=== PATIENT | male | born 1975 | race Caucasian/White ===

== ENCOUNTER 2023-10-23 16:48 | Inpatient (IN) ==
[2023-10-23] MEDS ORDERED: ONDANSETRON 4 MG/2 ML VIAL IV PRN (17:33)
[2023-10-23] MEDS: PIPERACILLIN SODIUM/TAZOBACTAM 3.375 GM in DEXTROSE 5% IN WATER 50 ML IV SCH (17:34)
[2023-10-23] MEDS: 0.9 % SODIUM CHLORIDE 1,000 ML IV ONE (17:34)
[2023-10-23] MEDS: 0.9 % SODIUM CHLORIDE 1,000 ML IV SCH (19:47)
[2023-10-23] MEDS: HYDROmorphone 0.5 MG/0.5 ML SYRINGE IV PRN (19:48)
[2023-10-23] MEDS: 0.9 % SODIUM CHLORIDE 10 ML SYRINGE IV SCH (19:48)
[2023-10-23] MEDS: ACETAMINOPHEN 1,000 MG/100 ML BAG IV SCH (20:52)
[2023-10-23] MEDS: PIPERACILLIN SODIUM/TAZOBACTAM 3.375 GM in DEXTROSE 5% IN WATER 100 ML IV SCH (21:38)
[2023-10-24 05:54] LABS: Basophils # (Auto) 0.04 K/mcL (0.00-0.30); Basophils % (Auto) 0.3 % (0.0-2.0); Eosinophils # (Auto) 0.06 K/mcL (0.00-0.70); Eosinophils % (Auto) 0.5 % (0.0-7.0); Hematocrit 36.1 % (40.1-51.0); Hemoglobin 11.7 g/dL (13.7-17.5); Lymphocytes # (Auto) 1.79 K/mcL (1.50-4.80); Lymphocytes % (Auto) 13.7 % (15.5-49.0); Mean Cell Volume 93.8 fL (80.0-100.0); Mean Corpuscular HGB Conc 32.4 g/dL (31.0-36.0); Mean Platelet Volume 8.5 fL (8.8-12.5); Monocytes % (Auto) 13.8 % (1.0-12.0); Neutrophils % (Auto) 71.5 % (38.0-78.0); Platelet Count 417 K/mcL (140-440); RBC 3.85 M/mcL (4.63-6.08); Red Cell Distribution Width 11.9 % (11.5-14.5); WBC 13.1 K/mcL (4.5-11.0)
[2023-10-24 06:15] LABS: ALT/SGPT 49 U/L (<40); AST/SGOT 24 U/L (<40); Albumin 3.3 gm/dL (3.2-5.2); Alkaline Phosphatase 77 U/L (39-117); Bilirubin,Direct < 0.2 mg/dL (0-0.3); Bilirubin,Total 0.4 mg/dL (0.1-1.0); Blood Urea Nitrogen 7 mg/dL (6-20); Calcium 8.5 mg/dL (8.6-10.4); Carbon Dioxide 22 mmol/L (22-30); Chloride 100 mmol/L (96-108); Globulin 3.4 gm/dL (2.2-3.7); Glomerular Filtration Rate 106; Glucose 107 mg/dL (70-105); Lactate Dehydrogenase 105 U/L (135-225); Phosphorous 3.6 mg/dL (2.5-4.5); Triglycerides 124 mg/dL (<150); Uric Acid 3.9 mg/dL (2.5-8.0)
[2023-10-24] MEDS ORDERED: MIDAZOLAM 2 MG/2 ML VIAL ONE (13:44)
[2023-10-24] MEDS ORDERED: fentaNYL 100 MCG/2 ML VIAL ONE ×2 (13:44→15:48)
[2023-10-24] MEDS ORDERED: PROPOFOL 200 MG/20 ML VIAL IV ONE (13:45)
[2023-10-24] MEDS ORDERED: DEXAMETHASONE 10 MG/ML VIAL ONE (13:45)
[2023-10-24] MEDS ORDERED: ONDANSETRON 4 MG/2 ML VIAL ONE (13:45)
[2023-10-24] MEDS ORDERED: ROCURONIUM 10 MG/ML ML IV ONE ×2 (13:46→14:23)
[2023-10-24] MEDS ORDERED: HYDROmorphone 1 MG/ML SYRINGE ONE (13:47)
[2023-10-24] MEDS ORDERED: SUGAMMADEX SODIUM 200 MG/2 ML VIAL IV ONE (14:08)
[2023-10-24] MEDS ORDERED: IPRATROPIUM/ALBUTEROL 3 ML AMPUL.NEB NEB PRN (16:03)
[2023-10-24] MEDS ORDERED: NALOXONE HCL 0.4 MG/ML VIAL IV PRN (16:03)
[2023-10-24] MEDS ORDERED: ONDANSETRON 4 MG/2 ML VIAL IV PRN (16:03)
[2023-10-24] MEDS ORDERED: HYDROmorphone 0.5 MG/0.5 ML SYRINGE IV PRN (16:03)
[2023-10-24] MEDS: fentaNYL 100 MCG/2 ML VIAL IV PRN (16:31)
[2023-10-24] MEDS: LACTATED RINGERS 1,000 ML IV SCH (17:26)
[2023-10-25 06:11] LABS: Basophils # (Auto) 0 K/mcL (0.00-0.30); Basophils % (Auto) 0 % (0.0-2.0); Eosinophils # (Auto) 0 K/mcL (0.00-0.70); Eosinophils % (Auto) 0 % (0.0-7.0); Hematocrit 35.9 % (40.1-51.0); Hemoglobin 11.6 g/dL (13.7-17.5); Lymphocytes # (Auto) 0.73 K/mcL (1.50-4.80); Lymphocytes % (Auto) 4.6 % (15.5-49.0); Mean Cell Volume 94.5 fL (80.0-100.0); Mean Corpuscular HGB Conc 32.3 g/dL (31.0-36.0); Mean Platelet Volume 8.7 fL (8.8-12.5); Monocytes # (Auto) 0.57 K/mcL (0.10-0.90); Monocytes % (Auto) 3.6 % (1.0-12.0); Neutrophils % (Auto) 91.5 % (38.0-78.0); Platelet Count 436 K/mcL (140-440); Red Cell Distribution Width 12.1 % (11.5-14.5); WBC 15.8 K/mcL (4.5-11.0)
[2023-10-25 06:18] LABS: ALT/SGPT 48 U/L (<40); AST/SGOT 20 U/L (<40); Albumin 3.2 gm/dL (3.2-5.2); Albumin/Globulin Ratio 0.9 (1.0-2.3); Alkaline Phosphatase 79 U/L (39-117); Bilirubin,Direct < 0.2 mg/dL (0-0.3); Bilirubin,Total 0.3 mg/dL (0.1-1.0); Blood Urea Nitrogen 5 mg/dL (6-20); Calcium 8.6 mg/dL (8.6-10.4); Carbon Dioxide 25 mmol/L (22-30); Chloride 103 mmol/L (96-108); Globulin 3.4 gm/dL (2.2-3.7); Glomerular Filtration Rate 112; Glucose 198 mg/dL (70-105); Lactate Dehydrogenase 104 U/L (135-225); Phosphorous 2.5 mg/dL (2.5-4.5); Triglycerides 102 mg/dL (<150); Uric Acid 2.7 mg/dL (2.5-8.0)
[2023-10-25] MEDS: 0.9 % SODIUM CHLORIDE 1,000 ML IV SCH (17:50)
[2023-10-26 06:31] LABS: Basophils # (Auto) 0 K/mcL (0.00-0.30); Basophils % (Auto) 0 % (0.0-2.0); Eosinophils # (Auto) 0 K/mcL (0.00-0.70); Eosinophils % (Auto) 0 % (0.0-7.0); Hematocrit 32.5 % (40.1-51.0); Hemoglobin 10.4 g/dL (13.7-17.5); Lymphocytes # (Auto) 1.53 K/mcL (1.50-4.80); Lymphocytes % (Auto) 9.9 % (15.5-49.0); Mean Cell Volume 94.5 fL (80.0-100.0); Mean Platelet Volume 8.9 fL (8.8-12.5); Monocytes # (Auto) 0.97 K/mcL (0.10-0.90); Monocytes % (Auto) 6.3 % (1.0-12.0); Neutrophils % (Auto) 83.5 % (38.0-78.0); Platelet Count 500 K/mcL (140-440); RBC 3.44 M/mcL (4.63-6.08); Red Cell Distribution Width 12.3 % (11.5-14.5); WBC 15.4 K/mcL (4.5-11.0)
[2023-10-26 07:07] LABS: ALT/SGPT 43 U/L (<40); AST/SGOT 25 U/L (<40); Albumin 2.9 gm/dL (3.2-5.2); Albumin/Globulin Ratio 0.9 (1.0-2.3); Alkaline Phosphatase 102 U/L (39-117); Bilirubin,Direct < 0.2 mg/dL (0-0.3); Bilirubin,Total < 0.2 mg/dL (0.1-1.0); Blood Urea Nitrogen 6 mg/dL (6-20); Calcium 8.3 mg/dL (8.6-10.4); Carbon Dioxide 26 mmol/L (22-30); Chloride 105 mmol/L (96-108); Globulin 3.1 gm/dL (2.2-3.7); Glomerular Filtration Rate 119; Glucose 116 mg/dL (70-105); Lactate Dehydrogenase 101 U/L (135-225); Phosphorous 2.5 mg/dL (2.5-4.5); Triglycerides 175 mg/dL (<150); Uric Acid 2.2 mg/dL (2.5-8.0)
[2023-10-26] MEDS: 0.9 % SODIUM CHLORIDE 1,000 ML IV SCH (16:33)
[2023-10-26] MEDS: MEROPENEM 1 GM in 0.9 % SODIUM CHLORIDE 50 ML IV SCH (17:08)
[2023-10-26] MEDS: metroNIDAZOLE 500 MG/100 ML BAG IV SCH (17:31)
[2023-10-27 07:28] LABS: Basophils # (Auto) 0.03 K/mcL (0.00-0.30); Basophils % (Auto) 0.2 % (0.0-2.0); Eosinophils # (Auto) 0.21 K/mcL (0.00-0.70); Eosinophils % (Auto) 1.7 % (0.0-7.0); Hematocrit 35.9 % (40.1-51.0); Hemoglobin 11.6 g/dL (13.7-17.5); Mean Corpuscular HGB Conc 32.3 g/dL (31.0-36.0); Mean Platelet Volume 8.7 fL (8.8-12.5); Monocytes # (Auto) 1.07 K/mcL (0.10-0.90); Monocytes % (Auto) 8.7 % (1.0-12.0); Neutrophils % (Auto) 71.7 % (38.0-78.0); Platelet Count 632 K/mcL (140-440); RBC 3.82 M/mcL (4.63-6.08); Red Cell Distribution Width 12.5 % (11.5-14.5); WBC 12.3 K/mcL (4.5-11.0)
[2023-10-27 07:50] LABS: ALT/SGPT 43 U/L (<40); AST/SGOT 22 U/L (<40); Albumin 2.9 gm/dL (3.2-5.2); Albumin/Globulin Ratio 0.9 (1.0-2.3); Alkaline Phosphatase 75 U/L (39-117); Bilirubin,Direct < 0.2 mg/dL (0-0.3); Bilirubin,Total < 0.2 mg/dL (0.1-1.0); Blood Urea Nitrogen 5 mg/dL (6-20); Calcium 8.1 mg/dL (8.6-10.4); Carbon Dioxide 26 mmol/L (22-30); Chloride 103 mmol/L (96-108); Globulin 3.1 gm/dL (2.2-3.7); Glomerular Filtration Rate 119; Glucose 99 mg/dL (70-105); Lactate Dehydrogenase 111 U/L (135-225); Phosphorous 3.5 mg/dL (2.5-4.5); Triglycerides 163 mg/dL (<150); Uric Acid 2.8 mg/dL (2.5-8.0)
[2023-10-27] MEDS ORDERED: SCOPOLAMINE 1 PATCH PATCH TOPICAL PRN (10:15)
[2023-10-27] MEDS ORDERED: IPRATROPIUM/ALBUTEROL 3 ML AMPUL.NEB NEB PRN ×2 (10:15→12:48)
[2023-10-27] MEDS ORDERED: fentaNYL 100 MCG/2 ML VIAL ONE (11:12)
[2023-10-27] MEDS ORDERED: PROPOFOL 200 MG/20 ML VIAL IV ONE (11:12)
[2023-10-27] MEDS ORDERED: ONDANSETRON 4 MG/2 ML VIAL ONE (11:12)
[2023-10-27] MEDS ORDERED: ROCURONIUM 10 MG/ML ML IV ONE (11:12)
[2023-10-27] MEDS ORDERED: ONDANSETRON 4 MG/2 ML VIAL IV PRN (12:48)
[2023-10-27] MEDS ORDERED: NALOXONE HCL 0.4 MG/ML VIAL IV PRN (12:48)
[2023-10-27] MEDS ORDERED: HYDROmorphone 1 MG/ML SYRINGE ONE (12:49)
[2023-10-27] MEDS ORDERED: SUGAMMADEX SODIUM 200 MG/2 ML VIAL IV ONE (14:16)
[2023-10-27] MEDS: fentaNYL 100 MCG/2 ML VIAL IV PRN (14:56)
[2023-10-27] MEDS: METHOCARBAMOL 1,000 MG/10 ML VIAL IV ONE (14:58)
[2023-10-27] MEDS: POTASSIUM CHLORIDE 20 MEQ in DEXTROSE 5% IN WATER 250 ML IV ONE (15:33)
[2023-10-27] MEDS: LACTATED RINGERS 1,000 ML IV SCH (15:35)
[2023-10-27] MEDS: HYDROmorphone 0.5 MG/0.5 ML SYRINGE IV PRN (16:55)
[2023-10-27] MEDS: METOCLOPRAMIDE 10 MG/2 ML VIAL IV SCH (17:25)
[2023-10-27] MEDS: METHOCARBAMOL 1,000 MG/10 ML VIAL IV PRN (23:30)
[2023-10-28 06:59] LABS: Basophils # (Auto) 0.01 K/mcL (0.00-0.30); Basophils % (Auto) 0.1 % (0.0-2.0); Eosinophils # (Auto) 0.03 K/mcL (0.00-0.70); Eosinophils % (Auto) 0.2 % (0.0-7.0); Hematocrit 44.2 % (40.1-51.0); Hemoglobin 14.1 g/dL (13.7-17.5); Lymphocytes # (Auto) 1.63 K/mcL (1.50-4.80); Lymphocytes % (Auto) 8.7 % (15.5-49.0); Mean Cell Volume 95.1 fL (80.0-100.0); Mean Corpuscular HGB Conc 31.9 g/dL (31.0-36.0); Mean Platelet Volume 8.4 fL (8.8-12.5); Monocytes # (Auto) 1.54 K/mcL (0.10-0.90); Monocytes % (Auto) 8.2 % (1.0-12.0); Neutrophils % (Auto) 81.7 % (38.0-78.0); Platelet Count 741 K/mcL (140-440); RBC 4.65 M/mcL (4.63-6.08); Red Cell Distribution Width 12.8 % (11.5-14.5); WBC 18.7 K/mcL (4.5-11.0)
[2023-10-28 07:07] LABS: ALT/SGPT 26 U/L (<40); AST/SGOT 18 U/L (<40); Albumin 2.6 gm/dL (3.2-5.2); Albumin/Globulin Ratio 0.8 (1.0-2.3); Alkaline Phosphatase 62 U/L (39-117); Bilirubin,Direct < 0.2 mg/dL (0-0.3); Bilirubin,Total 0.4 mg/dL (0.1-1.0); Blood Urea Nitrogen 7 mg/dL (6-20); Calcium 8.2 mg/dL (8.6-10.4); Carbon Dioxide 24 mmol/L (22-30); Chloride 103 mmol/L (96-108); Globulin 3.1 gm/dL (2.2-3.7); Glomerular Filtration Rate 112; Glucose 130 mg/dL (70-105); Lactate Dehydrogenase 148 U/L (135-225); Phosphorous 4.6 mg/dL (2.5-4.5); Triglycerides 96 mg/dL (<150); Uric Acid 3.9 mg/dL (2.5-8.0)
[2023-10-28] MEDS: BENZOCAINE ONE 20% 1 SPRAY TOPICAL PRN (17:56)
[2023-10-29 06:24] LABS: Basophils # (Auto) 0.04 K/mcL (0.00-0.30); Basophils % (Auto) 0.2 % (0.0-2.0); Eosinophils # (Auto) 0.51 K/mcL (0.00-0.70); Eosinophils % (Auto) 3.2 % (0.0-7.0); Hematocrit 37.4 % (40.1-51.0); Lymphocytes # (Auto) 2.12 K/mcL (1.50-4.80); Lymphocytes % (Auto) 13.2 % (15.5-49.0); Mean Cell Volume 95.2 fL (80.0-100.0); Mean Corpuscular HGB Conc 32.1 g/dL (31.0-36.0); Mean Platelet Volume 8.4 fL (8.8-12.5); Monocytes # (Auto) 1.45 K/mcL (0.10-0.90); Platelet Count 686 K/mcL (140-440); RBC 3.93 M/mcL (4.63-6.08); Red Cell Distribution Width 12.9 % (11.5-14.5)
[2023-10-29 06:48] LABS: ALT/SGPT 17 U/L (<40); AST/SGOT 17 U/L (<40); Albumin 2.4 gm/dL (3.2-5.2); Albumin/Globulin Ratio 0.8 (1.0-2.3); Alkaline Phosphatase 55 U/L (39-117); Bilirubin,Direct < 0.2 mg/dL (0-0.3); Bilirubin,Total 0.2 mg/dL (0.1-1.0); Blood Urea Nitrogen 9 mg/dL (6-20); Calcium 8.1 mg/dL (8.6-10.4); Carbon Dioxide 27 mmol/L (22-30); Chloride 105 mmol/L (96-108); Globulin 2.9 gm/dL (2.2-3.7); Glomerular Filtration Rate 119; Glucose 116 mg/dL (70-105); Lactate Dehydrogenase 111 U/L (135-225); Phosphorous 2.1 mg/dL (2.5-4.5); Triglycerides 110 mg/dL (<150); Uric Acid 4.6 mg/dL (2.5-8.0)
[2023-10-29] MEDS: POTASSIUM PHOSPHATE 40 MEQ in DEXTROSE 5% IN WATER 500 ML IV ONE (08:31)
[2023-10-29] MEDS ORDERED: 0.9 % SODIUM CHLORIDE 10 ML SYRINGE IV PRN (14:24)
[2023-10-29] MEDS ORDERED: 0.9 % SODIUM CHLORIDE 10 ML SYRINGE IV SCH (21:00)
[2023-10-30 06:11] LABS: Basophils # (Auto) 0.05 K/mcL (0.00-0.30); Basophils % (Auto) 0.4 % (0.0-2.0); Eosinophils # (Auto) 0.68 K/mcL (0.00-0.70); Eosinophils % (Auto) 5.6 % (0.0-7.0); Hemoglobin 10.8 g/dL (13.7-17.5); Lymphocytes # (Auto) 1.82 K/mcL (1.50-4.80); Mean Cell Volume 95.8 fL (80.0-100.0); Mean Corpuscular HGB Conc 31.8 g/dL (31.0-36.0); Mean Platelet Volume 8.3 fL (8.8-12.5); Monocytes # (Auto) 1.06 K/mcL (0.10-0.90); Monocytes % (Auto) 8.7 % (1.0-12.0); Neutrophils % (Auto) 68.1 % (38.0-78.0); Platelet Count 580 K/mcL (140-440); RBC 3.55 M/mcL (4.63-6.08); Red Cell Distribution Width 12.9 % (11.5-14.5); WBC 12.2 K/mcL (4.5-11.0)
[2023-10-30 06:24] LABS: ALT/SGPT 19 U/L (<40); AST/SGOT 19 U/L (<40); Albumin 2.3 gm/dL (3.2-5.2); Albumin/Globulin Ratio 0.9 (1.0-2.3); Alkaline Phosphatase 52 U/L (39-117); Bilirubin,Direct < 0.2 mg/dL (0-0.3); Bilirubin,Total < 0.2 mg/dL (0.1-1.0); Blood Urea Nitrogen 7 mg/dL (6-20); Calcium 7.7 mg/dL (8.6-10.4); Carbon Dioxide 27 mmol/L (22-30); Chloride 105 mmol/L (96-108); Globulin 2.7 gm/dL (2.2-3.7); Glomerular Filtration Rate 129; Glucose 95 mg/dL (70-105); Lactate Dehydrogenase 124 U/L (135-225); Phosphorous 2.3 mg/dL (2.5-4.5); Triglycerides 130 mg/dL (<150); Uric Acid 4.5 mg/dL (2.5-8.0)
[2023-10-30] MEDS: HYDROmorphone 1 MG/ML SYRINGE IV PRN (12:28)
[2023-10-30] MEDS: FLEETS ADULT 1 DOSE ENEMA PR SCH (18:08)
[2023-10-30] MEDS: FLEETS ADULT 1 DOSE ENEMA PR ONE (19:54)
[2023-10-30] MEDS: cefTRIAXone 2 GM in DEXTROSE 5% IN WATER 50 ML IV SCH (21:45)
[2023-10-31] MEDS: cefTRIAXone 2 GM VIAL ONE (09:21)
[2023-10-31 09:48] LABS: Basophils # (Auto) 0.04 K/mcL (0.00-0.30); Basophils % (Auto) 0.4 % (0.0-2.0); Eosinophils # (Auto) 0.51 K/mcL (0.00-0.70); Eosinophils % (Auto) 5.2 % (0.0-7.0); Hematocrit 34.2 % (40.1-51.0); Hemoglobin 10.9 g/dL (13.7-17.5); Lymphocytes # (Auto) 1.99 K/mcL (1.50-4.80); Lymphocytes % (Auto) 20.1 % (15.5-49.0); Mean Cell Volume 94.5 fL (80.0-100.0); Mean Corpuscular HGB Conc 31.9 g/dL (31.0-36.0); Mean Platelet Volume 8.2 fL (8.8-12.5); Monocytes # (Auto) 0.85 K/mcL (0.10-0.90); Monocytes % (Auto) 8.6 % (1.0-12.0); Neutrophils % (Auto) 63.9 % (38.0-78.0); Platelet Count 649 K/mcL (140-440); RBC 3.62 M/mcL (4.63-6.08); Red Cell Distribution Width 12.8 % (11.5-14.5); WBC 9.9 K/mcL (4.5-11.0)
[2023-10-31 11:12] LABS: ALT/SGPT 24 U/L (<40); AST/SGOT 32 U/L (<40); Albumin 2.5 gm/dL (3.2-5.2); Albumin/Globulin Ratio 0.9 (1.0-2.3); Alkaline Phosphatase 49 U/L (39-117); Bilirubin,Direct < 0.2 mg/dL (0-0.3); Bilirubin,Total 0.2 mg/dL (0.1-1.0); Blood Urea Nitrogen 6 mg/dL (6-20); Calcium 7.9 mg/dL (8.6-10.4); Carbon Dioxide 26 mmol/L (22-30); Chloride 104 mmol/L (96-108); Globulin 2.9 gm/dL (2.2-3.7); Glomerular Filtration Rate 134; Glucose 97 mg/dL (70-105); Lactate Dehydrogenase 134 U/L (135-225); Phosphorous 2.4 mg/dL (2.5-4.5); Triglycerides 160 mg/dL (<150); Uric Acid 5.4 mg/dL (2.5-8.0)
[2023-10-31] MEDS: POTASSIUM PHOSPHATE 40 MEQ in DEXTROSE 5% IN WATER 500 ML IV SCH (19:12)
[2023-11-01] MEDS: cefTRIAXone 2 GM VIAL ONE (09:59)
[2023-11-03] MEDS ORDERED: ONDANSETRON 4 MG/2 ML VIAL ONE (08:18)
[2023-11-03] MEDS ORDERED: ROCURONIUM 10 MG/ML ML IV ONE (08:18)
[2023-11-03] MEDS ORDERED: fentaNYL 100 MCG/2 ML VIAL ONE (08:18)
[2023-11-03] MEDS ORDERED: PROPOFOL 200 MG/20 ML VIAL IV ONE (08:18)
[2023-11-03] MEDS ORDERED: HYDROmorphone 1 MG/ML SYRINGE ONE (08:59)
[2023-11-03] MEDS ORDERED: ONDANSETRON 4 MG/2 ML VIAL IV PRN (09:34)
[2023-11-03] MEDS ORDERED: NALOXONE HCL 0.4 MG/ML VIAL IV PRN (09:34)
[2023-11-03] MEDS ORDERED: IPRATROPIUM/ALBUTEROL 3 ML AMPUL.NEB NEB PRN (09:34)
[2023-11-03] MEDS ORDERED: SUGAMMADEX SODIUM 200 MG/2 ML VIAL IV ONE (09:36)
[2023-11-03] MEDS: fentaNYL 100 MCG/2 ML VIAL IV PRN (10:28)
[2023-11-03] MEDS: HYDROmorphone 0.5 MG/0.5 ML SYRINGE IV PRN (10:36)
[2023-11-03] MEDS: LACTATED RINGERS 1,000 ML IV SCH (11:07)
[2023-11-04 07:38] LABS: Basophils # (Auto) 0.04 K/mcL (0.00-0.30); Basophils % (Auto) 0.4 % (0.0-2.0); Eosinophils % (Auto) 3.2 % (0.0-7.0); Hematocrit 36.4 % (40.1-51.0); Hemoglobin 11.6 g/dL (13.7-17.5); Lymphocytes # (Auto) 2.14 K/mcL (1.50-4.80); Lymphocytes % (Auto) 22.7 % (15.5-49.0); Mean Cell Volume 94.5 fL (80.0-100.0); Mean Corpuscular HGB Conc 31.9 g/dL (31.0-36.0); Mean Platelet Volume 8.3 fL (8.8-12.5); Monocytes # (Auto) 0.79 K/mcL (0.10-0.90); Monocytes % (Auto) 8.4 % (1.0-12.0); Neutrophils % (Auto) 64.2 % (38.0-78.0); Platelet Count 521 K/mcL (140-440); RBC 3.85 M/mcL (4.63-6.08); Red Cell Distribution Width 12.6 % (11.5-14.5); WBC 9.4 K/mcL (4.5-11.0)
[2023-11-04 07:54] LABS: ALT/SGPT 27 U/L (<40); AST/SGOT 33 U/L (<40); Albumin 2.8 gm/dL (3.2-5.2); Albumin/Globulin Ratio 0.9 (1.0-2.3); Alkaline Phosphatase 50 U/L (39-117); Bilirubin,Direct < 0.2 mg/dL (0-0.3); Bilirubin,Total 0.2 mg/dL (0.1-1.0); Blood Urea Nitrogen 5 mg/dL (6-20); Calcium 8.5 mg/dL (8.6-10.4); Carbon Dioxide 27 mmol/L (22-30); Chloride 100 mmol/L (96-108); Globulin 3.1 gm/dL (2.2-3.7); Glomerular Filtration Rate 119; Glucose 115 mg/dL (70-105); Lactate Dehydrogenase 166 U/L (135-225); Phosphorous 3.7 mg/dL (2.5-4.5); Triglycerides 215 mg/dL (<150); Uric Acid 4.2 mg/dL (2.5-8.0)
[2023-11-05 05:48] LABS: Basophils # (Auto) 0.05 K/mcL (0.00-0.30); Basophils % (Auto) 0.5 % (0.0-2.0); Eosinophils # (Auto) 0.33 K/mcL (0.00-0.70); Eosinophils % (Auto) 3.4 % (0.0-7.0); Hematocrit 33.8 % (40.1-51.0); Hemoglobin 10.7 g/dL (13.7-17.5); Lymphocytes # (Auto) 1.67 K/mcL (1.50-4.80); Mean Cell Volume 94.7 fL (80.0-100.0); Mean Corpuscular HGB Conc 31.7 g/dL (31.0-36.0); Mean Platelet Volume 8.3 fL (8.8-12.5); Monocytes % (Auto) 8.2 % (1.0-12.0); Neutrophils % (Auto) 70.2 % (38.0-78.0); Platelet Count 493 K/mcL (140-440); RBC 3.57 M/mcL (4.63-6.08); Red Cell Distribution Width 12.8 % (11.5-14.5); WBC 9.8 K/mcL (4.5-11.0)
[2023-11-05 06:18] LABS: ALT/SGPT 25 U/L (<40); AST/SGOT 34 U/L (<40); Albumin 2.8 gm/dL (3.2-5.2); Albumin/Globulin Ratio 0.9 (1.0-2.3); Alkaline Phosphatase 48 U/L (39-117); Bilirubin,Direct < 0.2 mg/dL (0-0.3); Bilirubin,Total 0.2 mg/dL (0.1-1.0); Blood Urea Nitrogen 6 mg/dL (6-20); Calcium 8.4 mg/dL (8.6-10.4); Carbon Dioxide 26 mmol/L (22-30); Chloride 99 mmol/L (96-108); Globulin 3.1 gm/dL (2.2-3.7); Glomerular Filtration Rate 129; Glucose 138 mg/dL (70-105); Lactate Dehydrogenase 136 U/L (135-225); Phosphorous 3.2 mg/dL (2.5-4.5); Triglycerides 192 mg/dL (<150); Uric Acid 3.9 mg/dL (2.5-8.0)
[2023-11-05] MEDS: oxyCODONE IR 5 MG TABLET PO PRN (13:03)
[2023-11-06 06:37] LABS: ALT/SGPT 29 U/L (<40); AST/SGOT 37 U/L (<40); Albumin 3.3 gm/dL (3.2-5.2); Alkaline Phosphatase 57 U/L (39-117); Bilirubin,Direct < 0.2 mg/dL (0-0.3); Bilirubin,Total < 0.2 mg/dL (0.1-1.0); Blood Urea Nitrogen 8 mg/dL (6-20); Calcium 8.9 mg/dL (8.6-10.4); Carbon Dioxide 26 mmol/L (22-30); Chloride 103 mmol/L (96-108); Globulin 3.3 gm/dL (2.2-3.7); Glomerular Filtration Rate 119; Glucose 116 mg/dL (70-105); Lactate Dehydrogenase 141 U/L (135-225); Phosphorous 3.5 mg/dL (2.5-4.5); Triglycerides 238 mg/dL (<150); Uric Acid 3.8 mg/dL (2.5-8.0)
== END 2023-11-06 16:03 | disposition home or self-care (01) | DRG 330 ==
LOC: MEDSUR 16:48 → ED 16:48 → MEDSUR 18:53
PROVIDERS: ADMIT Surgery Surgical Critical Care; ATTEND Family Medicine Adult Medicine
PROC: LAPAPPY (ICD-10-PCS; 2023-10-24 13:54)